=== PATIENT | female | born 1975 | race Two or more races ===

== ENCOUNTER 2021-01-26 13:07 | Emergency (ER) | payer OTHER ==
[~2021-01-26] VITALS: Ht 167.6 cm; Wt 103.2 kg
--- NOTE | 2021-01-26 14:33 | NUR ---
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
[2021-01-26 14:41] LABS: BASOPHILS % (AUTO) 1 % (0-1); EOSINOPHILS % (AUTO) 1 % (1-7); LYMPHOCYTES % (AUTO) 26 % (22-44); MEAN CORPUSCULAR HEMOGLOBIN 29.8 pg (27.0-34.8); MEAN CORPUSCULAR HGB CONC 33.3 g/dL (32.4-35.8); MEAN PLATELET VOLUME 9.2 fL (7.4-10.4); MONOCYTES % (AUTO) 4 % (2-9); NEUTROPHILS % (AUTO) 69 % (42-75); PLATELET COUNT 303 x10^3/uL (130-400); RED BLOOD COUNT 4.93 x10^6/uL (3.82-5.3)
[2021-01-26 14:53] LABS: ALBUMIN 3.3 g/dL (3.4-5.0); ANION GAP 6 mmol/L (5-15); CALCIUM 9.2 mg/dL (8.5-10.1); CHLORIDE 104 mmol/L (98-107)
--- NOTE | 2021-01-26 14:55 | NUR ---
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 she was also expierincing a MAR that has since resolved. no LOC. pt reports that she had a slip and fall at home yesterday while cleaning the floor but no head injury and no LOC. per daughter at bedside pt called her on the phone when her sx started and pt was slurring her words. pt reports that she was feeling very tired and that now she is feeling like she wants to cry pt is A&O x4, calm and cooperative. ambulatory and ESTEVES without difficulty pt daughter at bedside. pt daughter Bela age 25 cell phone [phone]. pt daughter is fluent in both [place] and greek and pt states that she prefers for her daughter to translate for her
[2021-01-26 15:01] LABS: ALANINE AMINOTRANSFERASE 23 U/L (12-78); ALKALINE PHOSPHATASE 107 U/L (45-117); BILIRUBIN,TOTAL 0.4 mg/dL (0.2-1.0); CREATININE 0.47 mg/dL (0.55-1.02); TOTAL PROTEIN 7.5 g/dL (6.4-8.2); TROPONIN I < 0.015 ng/mL (0.000-0.045)
--- NOTE | 2021-01-26 15:23 | NUR ---
pt resting in position of comfort. no apparent distress pt and daughter updated on POC
--- NOTE | 2021-01-26 16:02 | NUR ---
pt in CT scan
[2021-01-26] MEDS ORDERED: OMNIPAQUE 350 MG/ML, 100ML BOTTLE ONE (16:33)
--- NOTE | 2021-01-26 16:53 | NUR ---
chart up for MD recheck
[2021-01-26 17:31] VITALS: BP 140/78
== END 2021-01-26 18:00 ==
LOC: ED 17:45
DX: E11.40 Type 2 diabetes mellitus with diabetic neuropathy, unspecified (principal); I10 Essential (primary) hypertension
CPT/HCPCS: 36415; 70450; 70496; 70498; 71045; 80053; 82962; 84484; 85025; 93005; 99285; Q9967

== ENCOUNTER 2021-01-29 16:35 | Emergency (ER) | payer OTHER ==
[~2021-01-29] VITALS: Ht 167.6 cm; Wt 106.0 kg
--- NOTE | 2021-01-29 17:04 | NUR ---
PT. ARRIVES BY [facility] WITH C/O DIZZINESS AND VERTIGO THAT STARTED AT 14:30 TODAY. PT. REMAINS A & O X 4 WITH A GCS OF 15. IV ACCESS WAS ESTABLISHED IN THE FIELD AND THE PT. WAS MEDICATED WITH 8 MG OF IV ZOFRAN LOCAL COORDINATOR WHICH STATES HELP HER NAUSEA AND VOMITING HOWEVER SHE STATES SHE IS STILL FEELING DIZZY. PT. DOES C/O AN ECHO IN HER RIGHT EAR. PT.'S LUNGS ARE CTA. RESPIRATIONS ARE EUPNEIC. SATS ARE 96% ON ROOM AIR. PT.'S ABD. IS SOFT AND ROUND WITH BS + X 4 QUADS. PT.'S NEURO ASSESSMENT IS INTACT. HAND GRASPS REMAIN EQUAL AND STRONG WELL HER DORAL PEDAL PUSH PULLS. PT.'S CAP REFILL IS BRISK, LESS THAN 2 SECONDS WITH PULSES +2 THROUGHOUT. PT. SWALLOWS WITHOUT DIFFICULTY AND ESTEVES WNL. PT. IS RESTING WITH THE CP MONITOR IN PLACE AND SIDERAILS REMAIN UP X 2 WITH THE CALL LIGHT IN PLACE. HOB IS ELEVATED GREATER THAN 30 DEGREES. SHE HAS A BLANKET IN PLACE FOR WARMTH.
[2021-01-29] MEDS ORDERED: MECLIZINE CHEWABLE 25 MG TAB PO ONE (18:00)
[2021-01-29 18:18] LABS: BASOPHILS % (AUTO) 0 % (0-1); EOSINOPHILS % (AUTO) 0 % (1-7); LYMPHOCYTES % (AUTO) 11 % (22-44); MEAN CORPUSCULAR HEMOGLOBIN 29.6 pg (27.0-34.8); MEAN CORPUSCULAR HGB CONC 33.2 g/dL (32.4-35.8); MEAN PLATELET VOLUME 8.5 fL (7.4-10.4); MONOCYTES % (AUTO) 4 % (2-9); NEUTROPHILS % (AUTO) 85 % (42-75); PLATELET COUNT 328 x10^3/uL (130-400); RED BLOOD COUNT 4.87 x10^6/uL (3.82-5.3); RED CELL DISTRIBUTION WIDTH 13.3 % (9.6-15.2)
[2021-01-29] MEDS ORDERED: MECLIZINE CHEWABLE 25 MG TAB ONE (18:40)
--- NOTE | 2021-01-29 18:54 | NUR ---
PT. WALKED TO THE RESTROOM WITH HER DAUGHTER, STEADY GAIT. PT. REPORTS FEELING LIKE HER BGL IS LOW. STAT BGL DONE AND FOUND TO BE 74. DISCUSSED WITH DR. GOLDSTEIN AND THE PT. WAS GIVEN JUICE AND CRACKERS. PT. REMAINS MONITORED AND VITALS ARE STABLE.
--- NOTE | 2021-01-29 19:13 | NUR ---
PT. TO MRI
[2021-01-29 19:24] LABS: ALBUMIN 3.6 g/dL (3.4-5.0); ANION GAP 8 mmol/L (5-15); CALCIUM 9.6 mg/dL (8.5-10.1); CHLORIDE 105 mmol/L (98-107); CREATININE 0.48 mg/dL (0.55-1.02)
--- NOTE | 2021-01-29 20:32 | NUR ---
PT.'S VITALS ARE STABLE. PT. WILL AMBULATE TO THE RESTROOM.
--- NOTE | 2021-01-29 20:51 | NUR ---
BEDSIDE REPORT FROM BRADY RN, PT CARE TRANSFERRED AT THIS TIME.
--- NOTE | 2021-01-29 20:54 | NUR ---
pt ambulated to and from restroom with a smooth and steady gait, nad, pt resting back on gurney, chart up for recheck at this time. pt appears comfortable, denies additional questions or needs at this time. [facility]
[2021-01-29 21:27] VITALS: BP 113/79
--- NOTE | 2021-01-29 21:27 | NUR ---
Patient given discharge instructions and they have confirmed that they understand the instructions. Patient ambulatory with steady gait. NAD, all questions answered appropriately, denies additional needs at this time. No personal belongings left in room after discharge.
== END 2021-01-29 21:29 | disposition home or self-care (01) ==
LOC: ED 19:11
DX: R42 Dizziness and giddiness (principal); R11.2 Nausea with vomiting, unspecified; I10 Essential (primary) hypertension; E11.9 Type 2 diabetes mellitus without complications
CPT/HCPCS: 36415; 70551; 80048; 82040; 82962; 85025; 93005; 99285